=== PATIENT | male | born 1990 | race Two or more races ===

== ENCOUNTER 2020-07-17 09:56 | Emergency (ER) | payer OTHER ==
[~2020-07-17] VITALS: Ht 175.3 cm; Wt 83.7 kg
[2020-07-17] MEDS ORDERED: KETOROLAC 30 MG/1 ML ONE (10:26)
[2020-07-17] MEDS ORDERED: KETOROLAC 30 MG/1 ML IM ONE (10:30)
[2020-07-17] MEDS ORDERED: KETOROLAC 30 MG/1 ML IVPush ONE (10:30)
--- NOTE | 2020-07-17 10:38 | NUR ---
PT MEDICATED ORDERED. PT C/O PAULA, NAUSEA , AND BODY ACHES FOR 3 DAYS. NO KNOWN COVID CONTACTS. PT TESTED 4 DAYS AGO WITH NO RESULTS. WAITING FOR LABS AND CXR.
[2020-07-17 10:48] LABS: BASOPHILS # (AUTO) 0.05 x10^3/uL (0-0.1); BASOPHILS % (AUTO) 1 % (0-1); EOSINOPHILS # (AUTO) 0.27 x10^3/uL (0-0.4); EOSINOPHILS % (AUTO) 4 % (1-7); LYMPHOCYTES # (AUTO) 1.42 x10^3/uL (1-3.4); LYMPHOCYTES % (AUTO) 19 % (22-44); MD NO; MEAN CORPUSCULAR HEMOGLOBIN 30.5 pg (27.5-34.5); MEAN CORPUSCULAR HGB CONC 34.5 g/dL (33.2-36.2); MEAN CORPUSCULAR VOLUME 88.6 fL (81-97); MONOCYTES % (AUTO) 7 % (2-9); NEUTROPHILS # (AUTO) 5.17 x10^3/uL (1.8-6.8); NEUTROPHILS % (AUTO) 70 % (42-75); PLATELET COUNT 229 x10^3/uL (130-400); RED CELL DISTRIBUTION WIDTH 13.1 % (9.4-14.8)
[2020-07-17 10:50] LABS: ALANINE AMINOTRANSFERASE 34 U/L (12-78); ALBUMIN 4.4 g/dL (3.4-5.0); ANION GAP 7 mmol/L (5-15); CALCIUM 9.3 mg/dL (8.5-10.1); CHLORIDE 107 mmol/L (98-107); CREATININE 0.97 mg/dL (0.7-1.3)
[2020-07-17 10:55] LABS: ALKALINE PHOSPHATASE 57 U/L (45-117); TOTAL PROTEIN 8.1 g/dL (6.4-8.2); TROPONIN I < 0.015 ng/mL (0.000-0.045)
[2020-07-17 11:50] VITALS: BP 110/75
--- NOTE | 2020-07-17 12:07 | NUR ---
DC BY JOYCELYN MCKEON: Patient/Caregiver given discharge instructions and they have confirmed that they understand the instructions. Patient ambulatory with steady gait.
== END 2020-07-17 12:11 | disposition home or self-care (01) ==
LOC: ED 11:49
DX: R07.89 Other chest pain (principal); J06.9 Acute upper respiratory infection, unspecified; Z20.828 Contact with and (suspected) exposure to other viral communicable diseases; R51 Headache; R00.0 Tachycardia, unspecified
CPT/HCPCS: 36415; 71045; 80053; 84145; 84484; 85025; 87635; 93005; 96372; 99285; J1885